=== PATIENT | female | born 1985 | race Caucasian/White ===

== ENCOUNTER 2017-07-31 08:29 | Emergency (ER) | payer OTHER ==
[~2017-07-31] VITALS: Ht 170.2 cm; Wt 64.5 kg
[2017-07-31 08:32] VITALS: Ht 170.2 cm; Wt 64.5 kg
[2017-07-31] MEDS ORDERED: IBUP-1542 PO (09:27)
[2017-07-31] MEDS ORDERED: CEPH-443 PO (09:28)
--- NOTE | 2017-07-31 10:01 | ERD ---
ER Documentation Chief Complaint Chief Complaint lac above upper lip abrasion on lt cheek s/p fall last night HPI This is a 31-year-old female presents to the ER after falling onto her face last night while being intoxicated with alcohol. Patient states that she was trying to help her family member and she ended up falling down. She hit the top of her lip and her cheek. She did not hit her head and did not lose consciousness. She has not had any nausea or vomiting. She denies any dizziness, headache, confusion. ROS 12 point review of systems was done, all negative except per HPI. Medications Home Meds Active Scripts Cephalexin* (Keflex*) 500 Mg Capsule, 500 MG PO BID for 7 Days, CAP Prov:NIKKOSHELDON ORTIZ C 07/31/17 Ibuprofen* (Motrin*) 600 Mg Tab, 600 MG PO Q6, #30 TAB Prov:SHELDON EL C 07/31/17 PMhx/Soc Medical and Surgical Hx: pt denies Medical Hx, pt denies Surgical Hx Hx Alcohol Use: No Hx Substance Use: No Hx Tobacco Use: No Physical Exam Vitals Vital Signs Date Time Temp Pulse Resp B/P Pulse Ox O2 Delivery O2 Flow Rate FiO2 07/31/17 08:32 99.0 78 16 123/80 100 Physical Exam GENERAL: The patient is well developed and appropriate for usual state of health , in no apparent distress. HEENT: Atraumatic. Conjunctivae are pink. Pupils equal, round, and reactive to light. Extraocular muscles are grossly intact. Bilateral tympanic membranes are clear with no evidence of erythema, bulging or perforation. No sinus tenderness. No hemotympanum, no mccloud sign, no raccoon eyes. NECK: C-spine is soft and supple. CHEST: Clear to auscultation bilaterally. There are no rales, wheezes or rhonchi. HEART: Regular rate and rhythm. No murmurs, clicks, rubs or gallops. NEURO: Alert and oriented. Cranial nerves II through XII are intact. Motor strength in all 4 extremities with 5/5 strength. Sensation grossly intact. Normal speech and gait. Negative Rhomberg. +2 DTRs. SKIN: There are abrasions above the patient's lip and to the patient's left cheek.. Procedures/MDM Falling last night onto her face. Patient is neurologically intact with no focal neurological deficits, is ill-appearing and did not hit her head or lose consciousness. Patient denies any headaches at this time. She does have 2 small abrasions to the top of her lip and her left cheek, which did not require any sutures. Patient will be sent home with Keflex for any potential skin infection that may develop. Follow-up with her primary care doctor within 1-2 days return to ER sooner if symptoms worsen. My medical decision making sure with the patient she understands and agrees with plan. Departure Diagnosis: Primary Impression: Fall Condition: Stable Patient Instructions: Fall, Mechanical Additional Instructions: Call your primary care doctor TOMORROW for an appointment during the next 1-2 days.See the doctor sooner or return here if your condition worsens before your appointment time. SHELDON EL Jul 31, 2017 10:01
== END 2017-07-31 10:08 | disposition home or self-care (01) ==
LOC: FTE 08:29
DX: S00.81XA Abrasion of other part of head, initial encounter (principal); W18.39XA Other fall on same level, initial encounter; Y92.9 Unspecified place or not applicable
CPT/HCPCS: 99283